=== PATIENT | female | born 1995 | race Caucasian/White ===

== ENCOUNTER 2020-05-20 03:48 | Inpatient (IN) ==
[2020-05-20] MEDS ORDERED: LACTATED RINGER'S 1,000 ML IV PRN (04:38)
[2020-05-20] MEDS ORDERED: OXYTOCIN 30 UNITS/500 ML BAG IV PRN ×2 (04:38→09:18)
[2020-05-20 05:01] LABS: Hematocrit (blood only) 39.2 % (37-47); Hemoglobin 13.3 g/dL (12.0-16.0); Mean Corpuscular Hemoglobin 28.8 pg (25-34); Mean Corpuscular Volume 84.8 fL (80-100); Platelet Count 234 K/uL (130-400); RDW Coefficient of Variation 13.4 % (11.5-14.5); RDW Standard Deviation 40.7 fL (36.4-46.3); Red Blood Count 4.62 M/uL (4.2-5.4); White Blood Count 10.62 K/uL (4.8-10.8)
[2020-05-20 05:02] LABS: Mean Corpuscular Hgb Conc 33.9 g/dL (32-36)
[2020-05-20] MEDS ORDERED: oxyCODONE/ACETAMINOPHEN 5mg/325mg TAB PO PRN (09:18)
[2020-05-20] MEDS ORDERED: ACETAMINOPHEN W/CODEINE #3 1 TAB PO PRN (09:18)
[2020-05-20] MEDS ORDERED: BENZOCAINE 20% AER SPR 82.5 GM CAN EXT PRN (09:18)
[2020-05-20] MEDS ORDERED: bisacodyL 10 MG SUPP PR PRN (09:18)
[2020-05-20] MEDS ORDERED: HYDROCORTISONE ACETATE 25 MG SUPP PR PRN (09:18)
[2020-05-20] MEDS ORDERED: SUPERCREAM 0.870% 15 GM JAR EXT PRN (09:18)
[2020-05-20] MEDS ORDERED: ACETAMINOPHEN 325 MG TAB PO PRN (09:18)
[2020-05-20] MEDS ORDERED: DIPHTHERIA/TETANUS/PERTUSSIS 0.5 ML SYR/VIAL IM ONE (09:18)
[2020-05-20] MEDS: IBUPROFEN 600 MG TAB PO PRN ×3 (09:36→20:05)
--- NOTE | 2020-05-20 18:18 | Delivery Summary ---
DATE OF OPERATION: 05/20/2020 DELIVERY NOTE The patient is a 2, para 2, blood type is O positive, group B strep negative. Due date is 05/21/2020, was admitted with hue rupture of membranes in labor. The patient requested no pain medicine and no labor stimulation. She stalled at about 9 cm. I was able to hold the cervix back and she with about 4 pushes, pushed the head beyond the cervix and then with about 3-4 more pushes, crown the . Infant delivered via direct occiput anterior position over an intact perineum. was suctioned through the mouth and the nose. Cord was allowed to pulsate for 1 minute, then it was clamped, cut by the father. Cord blood was taken. With IV Pitocin running, the placenta was removed intact. Inspection of the perineum revealed a first degree laceration at 6 o'clock. The vaginal mucosa was approximated with 3-0 Vicryl out and beyond the hymenal ring. A deep suture was used to approximate the bulbocavernosus muscle, separate deep suture was used to approximate the perineal body, a running subcuticular suture was used to approximate the perineal skin edges. Following this, vaginal examination revealed no hematoma formation. Sponges were removed from the vagina. Estimated blood loss was 100 mL. Apgars are deferred to the nurses. I attest to the content of the Intraoperative Record and any orders documented therein. Any exception s are noted below.
[2020-05-20] MEDS ORDERED: DOCUSATE SODIUM 100 MG CAP PO ONE (19:36)
[2020-05-20] MEDS: DOCUSATE SODIUM 100 MG CAP PO SCH (20:33)
[2020-05-21 06:22] LABS: Hematocrit (blood only) 36.6 % (37-47); Hemoglobin 12.1 g/dL (12.0-16.0); Mean Corpuscular Hemoglobin 28.3 pg (25-34); Mean Corpuscular Hgb Conc 33.1 g/dL (32-36); Mean Corpuscular Volume 85.7 fL (80-100); Mean Platelet Volume 10.1 fL (7.4-10.4); Platelet Count 212 K/uL (130-400); RDW Coefficient of Variation 13.7 % (11.5-14.5); RDW Standard Deviation 42.6 fL (36.4-46.3); Red Blood Count 4.27 M/uL (4.2-5.4); White Blood Count 12.36 K/uL (4.8-10.8)
[2020-05-21] MEDS ORDERED: PRENATAL VITAMIN 1 TAB PO SCH (08:00)
[2020-05-21] MEDS: DOCUSATE SODIUM 100 MG CAP PO SCH (08:02)
[2020-05-21] MEDS: IBUPROFEN 600 MG TAB PO PRN (08:02)
--- NOTE | 2020-05-21 10:16 | History & Physical Report ---
Date of Service May 21, 2020 Assessment & Plan Admission and Anticipated Discharge Date Admission Date: May 20, 2020 History of Present Illness Primary Care Provider: Ramona Frod PA-C Allergies Allergy/AdvReac Type Severity Reaction Status Date / Time No Known Drug Allergies AdvReac NKDA Verified 04/14/18 22:47 Home Medications Home Medications Medication Instructions Recorded Confirmed Type PNV cmb#95-ferrous fumarate-FA 1 tab PO DAILY 05/05/20 05/20/20 History [] cetirizine [Zyrtec] 10 mg PO DAILY 05/05/20 05/20/20 History Patient History Medical History Anxiety Patient feels this occurred after last baby only for about 2 months Surgical History [place] teeth removed Family History (Updated 05/05/20 @ 11:07 by Sally Vieyra RN) Grandfather (Paternal) Hypertension Father Hypertension Sister Hypertension Grandfather (Maternal) Cancer Grandmother (Paternal) Cancer Social History Smoking Status: Never smoker Hx Alcohol Use: No Hx Substance Use: No Preferred Language: Kiswahili Beliefs That Will Affect Care: None marital status: Current Living Situation: Family Other Information That Helps Us Care for You: No Feels Safe at Home: Yes Safety Concerns: Feels Safe At This Time Assistive Devices: Glasses Review of Systems All systems reviewed & are unremarkable except as noted in HPI & below Physical Exam Constitutional: WD/WN, vitals as above well developed and well nourished Eyes: PERRL, conjunctivae normal, anicteric sclerae Neck: trachea midline, no thyromegaly Respiratory: normal respiratory effort, lungs clear to auscultation Auscultation: no crackles, no rales and no wheezes Cardiovascular: RRR, no murmur, no edema Gastrointestinal (Abdomen): normal bowel sounds, soft, nontender, no hepatosplenomegaly Uterus is below umbilicus Musculoskeletal: no cyanosis or clubbing, extremities motor strength 5/5 Skin: no rashes, warm and dry Neurologic: patellar DTR's 2+ bilat, sensation intact Psychiatric: A+Ox3, euthymic affect Genitourinary: normal external appearance Results & Data ([facility]) Vital Signs (Past 12 Hours) Vital Signs Temp Pulse Resp BP 05/21/20 07:20 36.6 C 89 16 107/69 05/21/20 05:00 36.6 C 96 H 18 114/76 05/20/20 23:35 36.7 C 83 18 114/70
--- NOTE | 2020-05-21 10:18 | Obstetrical Progress Note ---
Date of Service May 21, 2020 Assessment & Plan (1) Normal course: PPD #1 pt doing well disch home with instructions Subjective Ambulation: ambulating normally Voiding: no voiding problems Passing Gas:: Yes Diet Tolerance:: regular diet Lochia:: Small Feeding Type:: breast feeding Review of Systems All systems reviewed & are unremarkable except as noted in HPI & below Physical Exam Constitutional WD/WN, vitals as above well developed and well nourished Eyes PERRL, conjunctivae normal, anicteric sclerae Neck trachea midline, no thyromegaly Respiratory normal respiratory effort, lungs clear to auscultation Auscultation: no crackles, no rales and no wheezes Cardiovascular RRR, no murmur, no edema Gastrointestinal (Abdomen) normal bowel sounds, soft, nontender, no hepatosplenomegaly Uterus is below umbilicus Musculoskeletal no cyanosis or clubbing, extremities motor strength 5/5 Skin no rashes, warm and dry Neurologic patellar DTR's 2+ bilat, sensation intact Psychiatric A+Ox3, euthymic affect Genitourinary normal external appearance Results & Data ([facility]) Vital Signs (Past 12 Hours) Vital Signs Temp Pulse Resp BP 05/21/20 07:20 36.6 C 89 16 107/69 05/21/20 05:00 36.6 C 96 H 18 114/76 05/20/20 23:35 36.7 C 83 18 114/70
[2020-05-21] MEDS ORDERED: bisacodyL 5 MG TABEC PO SCH (20:00)
== END 2020-05-21 13:41 | disposition home or self-care (01) | DRG 807 ==
LOC: OPB 03:48 → 4S1 03:52 → 4S2 13:30

== ENCOUNTER 2021-06-13 09:23 | Observation (INO) ==
[2021-06-13] MEDS ORDERED: SODIUM CHLORIDE 0.9% 500 ML IV STA (09:29)
[2021-06-13] MEDS ORDERED: ONDANSETRON INJ 2 MG/ML 2 ML VIAL IV STA (09:29)
[2021-06-13] MEDS ORDERED: FAMOTIDINE 20MG IV PUSH 20 MG/5 ML SYR IV STA (09:34)
[2021-06-13] MEDS ORDERED: KETOROLAC TROMETHAMINE 15 MG/ML VIAL IV STA (09:34)
--- NOTE | 2021-06-13 09:41 | Emergency Department Note ---
Impression & Plan Acute appendicitis, Nausea & vomiting ED Provider Note Provider: Samuel Castillo MD DATE OF SERVICE: 06/13/2021 CHIEF COMPLAINT: Abdominal pain, nausea HISTORY OF PRESENT ILLNESS: Patient is a 25-year-old female no significant past medical history presenting here today complaining of midepigastric abdominal pain to right lower quadrant starting last night with associated nausea. One episode of vomiting. Describes a 7 out of 10 pain currently describes it as bit of a sharp pain. Denies heartburn. 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 She is vaccinated for Covid. Little bit of chills but no fevers overnight. States she was well yesterday and is little bit of her son's candy and was up most the night however with pain and very nauseous feeling. Has not had much to eat or drink overnight given this and has not attempted fluid intake or food intake this morning. No history of similar. Denies any abdominal surgeries in the past. REVIEW OF SYSTEMS: A total of 10 review of systems was obtained and negative except as stated above in the HPI. 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 NECK: Trachea midline. LUNGS: Airway patent. No retractions. Breath sounds clear HEART: Regular rate and rhythm. No chest wall tenderness ABDOMEN: Soft minimal epigastric tenderness radiating to the right lower quadrant. No Payton sign or right upper quadrant tenderness. BACK: No bilateral flank tenderness. SKIN: Acyanotic, warm, dry, without rashes EXTREMITIES: Without swelling, tenderness or deformity NEUROLOGICAL: No focal deficits. No aphasia. No facial droop or slurred speech. Ambulatory. PDMP was checked without noted issue. Patient's laboratory studies and imaging reviewed. Differential includes Appendicitis, ovarian cyst, ovarian torsion, ectopic , TOA, PID, infections, diverticulitis, UTI, obstruction, mesenteric ischemia, aortic pathology, inflammatory bowel disease, renal colic, PUD, pancreatitis, biliary pathology, hernia, volvulus, constipation, as well as other pathologies. IMPRESSION/MEDICAL DECISION MAKING: Patient symptoms could be related to gastritis or gastroenteritis however with the pain radiating quadrant question possible appendicitis. Patient labs and CT scan to be completed. Reassuring exam and lower suspicion for biliary p athology. Patient pain also seems less likely to represent ovarian pathology of oncological issues. Patient denies urinary symptoms but urinalysis was ordered. Treated her symptomatically initially. Blood work returns with moderate leukocytosis of almost 17. No evidence of hepatitis or pancreatitis. Urine reassuring. Negative . CT scan consistent with acute appendicitis nonruptured with 1.2 cm dilated appendix. Surgery was consulted. Cefoxitin was ordered per their direction. Patient was updated having significant improvement of her pain and nausea symptoms. Surgery to evaluate for likely laparoscopic appendectomy this afternoon. DIAGNOSIS: Acute appendicitis, nausea and vomiting DISPOSITION: Surgery team to take patient to the OR. Past Med/Surg History Medical History (Updated 06/13/21 @ 13:56 by Samuel Castillo M.D.) Anxiety Patient feels this occurred after last baby only for about 2 months Surgical History [place] teeth removed Family History (Updated 05/05/20 @ 11:07 by Sally Vieyra RN) Grandfather (Paternal) Hypertension Father Hypertension Sister Hypertension Grandfather (Maternal) Cancer Grandmother (Paternal) Cancer Social History Smoking Status: Never smoker Hx Alcohol Use: No Hx Substance Use: No Preferred Language: Citizen Of [place] Beliefs That Will Affect Care: None marital status: Current Living Situation: Family Feels Safe at Home: Yes Assistive Devices: Glasses Allergies Allergies Allergy/AdvReac Type Severity Reaction Status Date / Time No Known Drug Allergies AdvReac NKDA Verified 04/14/18 22:47 Home Meds Home Medications Medication Instructions Recorded Confirmed cetirizine 10 mg tablet (Zyrtec) 10 mg PO DAILY 05/05/20 06/13/21 vit no.95-ferrous 1 tab PO DAILY 05/05/20 06/13/21 fumarate 28 mg-folic acid 800 mcg tablet () Previous Rx's Medication Instructions Recorded ibuprofen 600 mg tablet 600 mg PO Q4H #30 tab 05/21/20 Results & Data (ED) Vital Signs Vital Signs - 24 hr 06/13/21 09:25 06/13/21 12:21 Temperature 36.8 C Temperature Source Temporal Artery Scan Pulse Rate 95 H Pulse Rate [Radial] 88 Pulse Rhythm [Radial] Regular Pulse Strength [Radial] Normal Respiratory Rate 18 18 Respiratory Effort / Characteristics Non-Labored Respiratory Depth Normal Normal Blood Pressure 101/71 Blood Pressure [Left Arm] 120/59 L Blood Pressure Mean 81 Blood Pressure Mean [Left Arm] 79 Blood Pressure Position [Left Arm] Lying Pulse Oximetry 100 97 Oxygen Delivery Method Room Air Room Air Sepsis Recent Fever Within 48 Hours No Sepsis New/Unexplained Change in Mental Status No Sepsis Action Taken by Nursing No Action Required Laboratory Data Result diagrams: 06/13/21 10:26 06/13/21 10: Lab Results 06/13/21 06/13/21 06/13/21 Range/Units 10:10 10: 10: WBC 16.93 H (4.8-10.8) K/uL RBC 4.69 (4.2-5.4) M/uL Hgb 13.9 (12.0-16.0) g/dL Hct 40.6 (37-47) % MCV 86.6 (80-100) fL MCH 29.6 (25-34) pg MCHC 34.2 (32-36) g/dL RDW Std Deviation 39.8 (36.4-46.3) fL RDW Coeff of Jaclyn 12.5 (11.5-14.5) % Plt Count 338 (130-400) K/uL MPV 10.2 (7.4-10.4) fL Immature Gran % (Auto) 0.1 % Neut % (Auto) 94.3 % Lymph % (Auto) 4.0 % Cloud % (Auto) 1.5 % Eos % (Auto) 0.0 % Baso % (Auto) 0.1 % Neut # (Auto) 15.97 H (1.4-6.5) K/uL Lymph # (Auto) 0.68 L (1.2-3.4) K/uL Cloud # (Auto) 0.25 (0.11-0.59) K/uL Eos # (Auto) 0.00 (0-0.5) K/uL Baso # (Auto) 0.01 (0-0.2) K/uL Immature Gran # (Auto) 0.02 (0.00-0.02) K/uL Sodium (136-145) mmol/L Potassium (3.5-5.1) mmol/L Chloride (98-107) mmol/L Carbon Dioxide (21-32) mmol/L Anion Gap (3-11) BUN (7-18) mg/dl Creatinine (0.6-1.2) mg/dl Est Cr Clr Drug Dosing ml/min Est GFR ( Amer) ml/min Est GFR (Non-Af Amer) ml/min BUN/Creatinine Ratio (10-20) Glucose (70-99) mg/dl Calcium (8.5-10.1) mg/dl Total Bilirubin (0.2-1) mg/dl AST (15-37) U/L ALT (12-78) U/L Alkaline Phosphatase (45-117) U/L Total Protein (6.4-8.2) gm/dl Albumin (3.4-5.0) gm/dl Globulin (2.5-4.0) gm/dl Albumin/Globulin Ratio (0.9-2) Lipase (73-393) U/L HCG, Qual (Negative) Urine Color Urine Appearance (Clear) Urine pH (4.5-7.5) Ur Specific [place] (1.000-1.030) Urine Protein (Negative) Urine Glucose (UA) (Negative) Urine Ketones (Negative) Urine Blood (Negative) Urine Nitrite (Negative) Urine Bilirubin (Negative) Urine Urobilinogen (Negative) Ur Leukocyte Esterase (Negative) Urine WBC (Auto) (0-5) /hpf Urine RBC (Auto) (0-4) /hpf U Hyaline Cast (Auto) (0-5) /lpf U Epithel Cells (Auto) (0-5) /lpf Urine Bacteria (Auto) (Negative) Ur Renal Epithelial Cell COVID-19 Eval Order Covid19 at [facility] SARS-CoV-2 (PCR) NEGATIVE (Negative) 06/13/21 06/13/21 06/13/21 Range/Units 10:26 10:26 10:42 WBC (4.8-10.8) K/uL RBC (4.2-5.4) M/uL Hgb (12.0-16.0) g/dL Hct (37-47) % MCV (80-100) fL MCH (25-34) pg MCHC (32-36) g/dL RDW Std Deviation (36.4-46.3) fL RDW Coeff of Jaclyn (11.5-14.5) % Plt Count (130-400) K/uL MPV (7.4-10.4) fL Immature Gran % (Auto) % Neut % (Auto) % Lymph % (Auto) % Cloud % (Auto) % Eos % (Auto) % Baso % (Auto) % Neut # (Auto) (1.4-6.5) K/uL Lymph # (Auto) (1.2-3.4) K/uL Cloud # (Auto) (0.11-0.59) K/uL Eos # (Auto) (0-0.5) K/uL Baso # (Auto) (0-0.2) K/uL Immature Gran # (Auto) (0.00-0.02) K/uL Sodium 137 (136-145) mmol/L Potassium 3.7 (3.5-5.1) mmol/L Chloride 104 (98-107) mmol/L Carbon Dioxide 27 (21-32) mmol/L Anion Gap 6.0 (3-11) BUN 12 (7-18) mg/dl Creatinine 0.61 (0.6-1.2) mg/dl Est Cr Clr Drug Dosing 119.6 ml/min Est GFR ( Amer) 144.0 ml/min Est GFR (Non-Af Amer) 124.2 ml/min BUN/Creatinine Ratio 19.6 (10-20) Glucose 112 H (70-99) mg/dl Calcium 9.3 (8.5-10.1) mg/dl Total Bilirubin 1.6 H (0.2-1) mg/dl AST 11 L (15-37) U/L ALT 22 (12-78) U/L Alkaline Phosphatase 70 (45-117) U/L Total Protein 8.0 (6.4-8.2) gm/dl Albumin 4.0 (3.4-5.0) gm/dl Globulin 4.0 (2.5-4.0) gm/dl Albumin/Globulin Ratio 1.0 (0.9-2) Lipase 95 (73-393) U/L HCG, Qual Negative (Negative) Urine Color Yellow Urine Appearance Turbid A (Clear) Urine pH 8.5 H (4.5-7.5) Ur Specific [place] 1.022 (1.000-1.030) Urine Protein Negative (Negative) Urine Glucose (UA) Negative (Negative) Urine Ketones 1+ H (Negative) Urine Blood Negative (Negative) Urine Nitrite Negative (Negative) Urine Bilirubin Negative (Negative) Urine Urobilinogen Negative (Negative) Ur Leukocyte Esterase Negative (Negative) Urine WBC (Auto) 1-5 (0-5) /hpf Urine RBC (Auto) 10-30 H (0-4) /hpf U Hyaline Cast (Auto) 10-30 H (0-5) /lpf U Epithel Cells (Auto) >30 H (0-5) /lpf Urine Bacteria (Auto) Negative (Negative) Ur Renal Epithelial Cell Not Reportable COVID-19 Eval Order SARS-CoV-2 (PCR) (Negative) Administered Medications Discontinued Medications Sodium Chloride (Nss) 500 mls @ 999 mls/hr IV .Q31M STA Stop: 06/13/21 09:59 Last Infusion: 06/13/21 10:41 Dose: 0 mls/hr Documented by: [id number] Admin: 06/13/21 10:09 Dose: 999 mls/hr Documented by: [id number] Famotidine (Pepcid 20mg Iv Push) 20 mg in 5 mls @ 2.5 mls/min IV NOW STA Stop: 06/13/21 09:35 Last Admin: 06/13/21 10:08 Dose: 2.5 mls/min Documented by: [id number] Cefoxitin Sodium (Mefoxin) 2,000 mg in 60 mls @ 100 mls/hr IV NOW STA Stop: 06/13/21 13:01 Last Infusion: 06/13/21 13:18 Dose: 0 mls/hr Documented by: [id number] Admin: 06/13/21 12:41 Dose: 100 mls/hr Documented by: [id number] Ioversol (Optiray 320 100ml) 94 ml IV ONCE ONE Stop: 06/13/21 11:54 Last Admin: 06/13/21 11:54 Dose: 94 ml Documented by: [id number] Ketorolac Tromethamine (Ketorolac Tromethamine 15 Mg/Ml Vial) 10 mg IV NOW STA Stop: 06/13/21 09:35 Last Admin: 06/13/21 10:08 Dose: 10 mg Documented by: [id number] Ondansetron HCl (Ondansetron Inj 2 Mg/Ml 2 Ml Vial) 4 mg IV NOW STA Stop: 06/13/21 09:30 Last Admin: 06/13/21 10:08 Dose: 4 mg Documented by: [id number] Imaging Data Radiologist's Impression: Abdomen/Pelvis CT 06/13/21 09:34 CT OF THE ABDOMEN AND PELVIS WITH CONTRAST CLINICAL HISTORY: nausea, mid to RLQ pain COMPARISON STUDY: None. TECHNIQUE: Following IV administration of 94 mL of Optiray, axial images of the abdomen and pelvis were obtained from the lung bases to the proximal femurs. Images were reviewed in the axial, sagittal, and coronal planes. IV contrast was administered without complication. Automated exposure control was utilized for the study. A dose lowering technique was utilized adhering to the principles of ALARA. Oral contrast was administered. CT DOSE: 372.66 mGycm FINDINGS: Lung bases are unremarkable. No pneumatosis, free air or portal venous gas is present. Size of the spleen is at the upper limits of normal. The adrenal glands, kidneys and pancreas are normal. There is no biliary or pancreatic ductal dilatation. Note is made of three intermediate attenuation hepatic lesions which have similar imaging characteristics. The largest is a 3.3 cm lateral segment lesion. This has incomplete nodular enhancement. There is no evidence for a bowel obstruction. Appendicoliths within the appendix are noted. The appendix is mildly dilated and fluid-filled, measuring 1.2 cm in caliber. There is mild periappendiceal infiltration. No free air or abscess is present. Uterine horns are slightly divergent. This favors an arcuate uterus. IMPRESSION: 1. Findings consistent with acute appendicitis. No free air or abscess. 2. Three hepatic lesions, as described above. These favor hemangiomas. However, follow-up nonemergent liver ultrasound is recommended. 3. Possible uterine anomaly. An arcuate uterus is favored. Septate uterus could appear similar although is considered less likely. ACT 112: Negative or not required by law. Electronically signed by: Olegario Galan M.D. 06/13/2021 12:05 PM Discharge Plan Visit Data Chief Complaint: Abdominal Pain Stated Complaint: ABD PAIN ED Provider: Samuel Castillo Discharge Problem: Acute appendicitis, Nausea & vomiting Patient Disposition: Being Evaluated by Surgeon Forms Stand Alone Forms: [employer] [facility] [employer] Prescriptions Prescriptions: No Action cetirizine [Zyrtec] 10 mg Tablet 10 mg PO DAILY RF: 0 PNV cmb#95-ferrous fumarate-FA [] 28 mg iron- 800 mcg Tablet 1 tab PO DAILY RF: 0 ibuprofen 600 mg Tablet 600 mg PO Q4H Qty: 30 RF: 0 Referrals Referrals: Ramona Ford PA-C [Outside Practitioners] -
[2021-06-13 10:31] LABS: Basophils # (auto) 0.01 K/uL (0-0.2); Basophils % (auto) 0.1 %; Hematocrit (blood only) 40.6 % (37-47); Hemoglobin 13.9 g/dL (12.0-16.0); Immature Granulocytes # (auto) 0.02 K/uL (0.00-0.02); Immature Granulocytes % (auto) 0.1 %; Lymphocytes # (auto) 0.68 K/uL (1.2-3.4); Mean Corpuscular Hemoglobin 29.6 pg (25-34); Mean Corpuscular Hgb Conc 34.2 g/dL (32-36); Mean Corpuscular Volume 86.6 fL (80-100); Mean Platelet Volume 10.2 fL (7.4-10.4); Monocytes # (auto) 0.25 K/uL (0.11-0.59); Monocytes % (auto) 1.5 %; Neutrophils # (auto) 15.97 K/uL (1.4-6.5); Neutrophils % (auto) 94.3 %; Platelet Count 338 K/uL (130-400); RDW Coefficient of Variation 12.5 % (11.5-14.5); RDW Standard Deviation 39.8 fL (36.4-46.3); Red Blood Count 4.69 M/uL (4.2-5.4); White Blood Count 16.93 K/uL (4.8-10.8)
[2021-06-13 10:48] LABS: BUN Creatinine Ratio 19.6 (10-20); Calcium 9.3 mg/dl (8.5-10.1); Creatinine Clr Calc Pharmacy 119.6 ml/min; Est GFR (Non-African American) 124.2 ml/min; Potassium 3.7 mmol/L (3.5-5.1)
[2021-06-13 10:51] LABS: Bilirubin,Total 1.6 mg/dl (0.2-1)
[2021-06-13 10:58] LABS: Pregnancy Test, Serum Negative (Negative)
[2021-06-13 11:02] LABS: Appearance Urine Turbid (Clear); Bacteria Urine Automated Negative (Negative); Bilirubin Urine Negative (Negative); Blood Urine Negative (Negative); Color Urine Yellow; Epithelial Cell Urine Auto >30 /lpf (0-5); Glucose Urine UA Negative (Negative); Ketones Urine 1+ (Negative); Leukocyte Esterase Urine Negative (Negative); Nitrite Urine Negative (Negative); Protein Urine Negative (Negative); Specific Gravity Urine 1.022 (1.000-1.030); Urobilinogen Urine Negative (Negative); pH Urine 8.5 (4.5-7.5)
[2021-06-13] MEDS ORDERED: OPTIRAY 320 100ml IV ONE (11:53)
--- NOTE | 2021-06-13 12:07 | CT Scan Report ---
CT OF THE ABDOMEN AND PELVIS WITH CONTRAST CLINICAL HISTORY: nausea, mid to RLQ pain COMPARISON STUDY: None. TECHNIQUE: Following IV administration of 94 mL of Optiray, axial images of the abdomen and pelvis we re obtained from the lung bases to the proximal femurs. Images were reviewed in the axial, sagittal, and coronal planes. IV contrast was administered without complication. Automated exposure control wa s utilized for the study. A dose lowering technique was utilized adhering to the principles of ALARA . Oral contrast was administered. CT DOSE: 372.66 mGycm FINDINGS: Lung bases are unremarkable. No pneumatosis, free air or portal venous gas is present. Size of the spleen is at the upper limits of normal. The adrenal glands, kidneys and pancreas are normal. There is no biliary or pancreatic ductal dilatation. Note is made of three intermediate attenuation hepatic lesions which have similar imaging characteristics. The largest is a 3.3 cm lateral segment l esion. This has incomplete nodular enhancement. There is no evidence for a bowel obstruction. Appendi coliths within the appendix are noted. The appendix is mildly dilated and fluid-filled, measuring 1.2 cm in caliber. There is mild periappendiceal infiltration. No free air or abscess is present. Uterin e horns are slightly divergent. This favors an arcuate uterus. IMPRESSION: 1. Findings consistent with acute appendicitis. No free air or abscess. 2. Three hepatic lesions, as described above. These favor hemangiomas. However, follow-up nonemergent liver ultrasound is recommended. 3. Possible uterine anomaly. An arcuate uterus is favored. Septate uterus could appear similar althou gh is considered less likely. ACT 112: Negative or not required by law. Electronically signed by: Olegario Galan M.D. 06/13/2021 12:05 PM
[2021-06-13] MEDS ORDERED: cefOXitin 2,000 MG/60 ML BAG IV STA (12:26)
[2021-06-13] MEDS ORDERED: MIDAZOLAM HCL 1 MG/ML 2ML VIAL ONE (15:16)
[2021-06-13] MEDS ORDERED: DEXAMETHASONE SOD INJ 4 MG/ML VIAL ONE (15:16)
[2021-06-13] MEDS ORDERED: ROCURONIUM BROMIDE 10 MG/ML 5 ML VIAL IV ONE (15:16)
[2021-06-13] MEDS ORDERED: PROPOFOL IV EMULSION 10 MG/ML 20 ML VIAL IV ONE (15:16)
[2021-06-13] MEDS ORDERED: LIDOCAINE 2% 2 ML VIAL/AMP(20MG/ML) INFIL ONE (15:16)
[2021-06-13] MEDS ORDERED: fentaNYL citrate 100 MCG/2 ML VIAL ONE ×2 (15:16→15:59)
[2021-06-13] MEDS ORDERED: ONDANSETRON INJ 2 MG/ML 2 ML VIAL ONE (15:16)
--- NOTE | 2021-06-13 15:20 | Anesthesiology Consultation ---
Date of Service June 13, 2021 Assessment & Plan Chart Review Chart Review: Acceptable Risk for Surgery and Patient NOT seen in Pre Admission Testing Consults Requested none ASA [id number] Proposed Anesthesia Anesthesia Type: General Risk / Benefits Reviewed With: PT / POA / Parent / Guardian, Accepts Plan and Informed Consent Obtained History Surgery Operation Date: 06/13/21 12:00 Proposed Procedures p Laparoscopic Appendectomy - Ximena Aguirre MD Height/Weight Height: 5 ft 4 in Weight: 62 kg Allergies Allergy/AdvReac Type Severity Reaction Status Date / Time No Known Drug Allergies AdvReac NKDA Verified 04/14/18 22:47 Medications Home Medications Medication Instructions Recorded Confirmed Last Taken cetirizine 10 mg tablet (Zyrtec) 10 mg PO DAILY 05/05/20 06/13/21 05/18/20 09:00 vit no.95-ferrous 1 tab PO DAILY 05/05/20 06/13/21 05/20/20 00:00 fumarate 28 mg-folic acid 800 mcg tablet () ibuprofen 600 mg tablet 600 mg PO Q4H #30 tab 05/21/20 06/13/21 Unknown NPO Date Last Intake of Fluids: 06/13/21 Time Last Intake of Fluids: 11:30 Date Last Intake of Solids: 06/12/21 Time Last Intake of Solids: 21:30 Past Medical History Medical History (Updated 06/13/21 @ 13:56 by Samuel Castillo M.D.) Anxiety Patient feels this occurred after last baby only for about 2 months Exercise / Class Metabolic Activity II 4-5 Yardwork/Stairs/Walk up hill Past Family History Family History (Updated 05/05/20 @ 11:07 by Sally Vieyra RN) Grandfather (Paternal) Hypertension Father Hypertension Sister Hypertension Grandfather (Maternal) Cancer Grandmother (Paternal) Cancer Past Surgical History Surgical History [place] teeth removed Past Anesthesia History No Hx of Anesthesia Complications and No Family Hx of Anesthesia Complications History of PONV No Hx of PONV and No Hx of Motion Sickness Social History Smoking Status: Never smoker Hx Alcohol Use: No Hx Substance Use: No Physical Exam Vital Signs Last Vital Signs Temp 37.0 C 06/13/21 14:38 Pulse 92 H 06/13/21 14:38 Resp 18 11/04/21 14:38 BP 125/78 06/13/21 14:38 Pulse Ox 100 06/13/21 14:38 ENMT Mouth: no dentition abnormality Thyromental Distance: > or= 3.5 Finger Breadths Mallampati Class: II Neck normal visual inspection Respiratory normal respiratory effort Auscultation: lungs clear to auscultation bilaterally Cardiovascular Rate/Rhythm: regular rate and regular rhythm Psychiatric Orientation: alert Testing Laboratory Results 06/13/21 10:26 06/13/21 10:26 Urine Color Yellow 06/13/21 10:42 Urine Appearance Turbid (Clear) A 06/13/21 10:42 Urine pH 8.5 (4.5-7.5) H 06/13/21 10:42 Ur Specific [place] 1.022 (1.000-1.030) 06/13/21 10:42 Urine Protein Negative (Negative) 06/13/21 10:42 Urine Glucose (UA) Negative (Negative) 06/13/21 10:42 Urine Ketones 1+ (Negative) H 06/13/21 10:42 Urine Nitrite Negative (Negative) 06/13/21 10:42 Ur Leukocyte Esterase Negative (Negative) 06/13/21 10:42 Urine WBC (Auto) 1-5 /hpf (0-5) 06/13/21 10:42 Urine RBC (Auto) 10-30 /hpf (0-4) H 06/13/21 10:42 U Hyaline Cast (Auto) 10-30 /lpf (0-5) H 06/13/21 10:42 U Epithel Cells (Auto) >30 /lpf (0-5) H 06/13/21 10:42 Urine Bacteria (Auto) Negative (Negative) 06/13/21 10:42
--- NOTE | 2021-06-13 15:25 | Surgery Consultation ---
Date of Consultation June 13, 2021 Assessment & Plan (1) Acute appendicitis: pt is a 25 year-old female who presents to Er with one day history RLQ pain, IMP: acute appendicitis, Plan, I recommend to do laparoscopic appendectomy, possible open, D/W benefits, risks and alternatives of the surgery, the risks - infection, bleeding, injury other organs, abscess, pt understood she agrees with the surgery, she signed informed consent, I answered all questions, pre-op iv antibiotic, History of Present Illness Reason for Consultation: Acute appendicitis Attending Physician: Ximena Aguirre MD History of Present Illness CHIEF COMPLAINT: Abdominal pain, nausea HISTORY OF PRESENT ILLNESS: Patient is a 25-year-old female no significant past medical history presenting here today complaining of midepigastric abdominal pain to right lower quadrant starting last night with associated nausea. One episode of vomiting. Describes a 7 out of 10 pain currently describes it as bit of a sharp pain. Denies heartburn. 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 She is vaccinated for Covid. Little bit of chills but no fevers overnight. States she was well yesterday and is little bit of her son's candy and was up most the night however with pain and very nauseous feeling. Has not had much to eat or drink overnight given this and has not attempted fluid intake or food intake this morning. No history of similar. Denies any abdominal surgeries in the past. I ( Ximena Aguirre MD) got a call for consult acute appendicitis, I reviewed pt's H/P, labs, CT scan with pt, REVIEW OF SYSTEMS: A total of 10 review of systems was obtained and negative except as stated above in the HPI. 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 2 children Past Med/Surg History Medical History(Updated 06/13/21 @ 13:56 by Samuel Castillo M.D.) Anxiety Patient feels this occurred after last baby only for about 2 months Surgical History [place] teeth removed Family History(Updated 05/05/20 @ 11:07 by Sally Vieyra RN) Grandfather (Paternal) HypertensionFather HypertensionSister HypertensionGrandfather (Maternal) CancerGrandmother (Paternal) Cancer Social History Smoking Status: Never smoker Hx Alcohol Use: No Hx Substance Use: No Preferred Language: Welsh Beliefs That Will Affect Care: None marital status: Current Living Situation: Family Feels Safe at Home: Yes Assistive Devices: Glasses Allergies Allergies Allergy/AdvReac Type Severity Reaction Status Date / Time No Known Drug Allergies AdvReac NKDA Verified 04/14/18 22:47 Home Meds Home Medications Medication Instructions Recorded Confirmed cetirizine 10 mg tablet (Zyrtec) 10 mg PO DAILY 05/05/20 1 vit no.95-ferrous 1 tab PO DAILY 05/05/20 06/13/21 fumarate 28 mg-folic acid 800 mcg tablet () Previous Rx's Medication Instructions Recorded ibuprofen 600 mg tablet 600 mg PO Q4H #30 tab 05/21/20 Results & Data (ED) Vital Signs Vital Signs - 24 hr 06/13/21 09:25 06/13/21 12:21 Temperature 36.8 C Temperature Source Temporal Artery Scan Pulse Rate 95 H Pulse Rate [Radial] 88 Pulse Rhythm [Radial] Regular Pulse Strength [Radial] Normal Respiratory Rate 18 18 Respiratory Effort / Characteristics Non-Labored Respiratory Depth Normal Normal Blood Pressure 101/71 Blood Pressure [Left Arm] 120/59 L Blood Pressure Mean 81 Blood Pressure Mean [Left Arm] 79 Blood Pressure Position [Left Arm] Lying Pulse Oximetry 100 97 Oxygen Delivery Method Room Air Room Air Sepsis Recent Fever Within 48 Hours No Sepsis New/Unexplained Change in Mental Status No Sepsis Action Taken by Nursing No Action Required Laboratory Data Result diagrams: 06/13/21 10:26 06/13/21 10:26 Lab Results 06/13/21 06/13/21 06/13/21 Range/Units 10:10 10:10 10:26 WBC 16.93 H (4.8-10.8) K/uL RBC 4.69 (4.2-5.4) M/uL Hgb B 13.9 (12.0-16.0) g/dL Hct 40.6 (37-47) % MCV 86.6 (80-100) fL MCH 29.6 (25-34) pg MCHC 34.2 (32-36) g/dL RDW Std Deviation 39.8 (36.4-46.3) fL RDW Coeff of Jaclyn 12.5 (11.5-14.5) % Plt Count 338 (130-400) K/uL MPV 10.2 (7.4-10.4) fL Immature Gran % (Auto) 0.1 % Neut % (Auto) 94.3 % Lymph % (Auto) 4.0 % [place] % (Auto) 1.5 % Eos % (Auto) 0.0 % Baso % (Auto) 0.1 % Neut # (Auto) 15.97 H (1.4-6.5) K/uL Lymph # (Auto) 0.68 L (1.2-3.4) K/uL [place] # (Auto) 0.25 (0.11-0.59) K/uL Eos # (Auto) 0.00 (0-0.5) K/uL Baso # (Auto) 0.01 (0-0.2) K/uL Immature Gran # (Auto) 0.02 (0.00-0.02) K/uL Sodium (136-145) mmol/L Potassium (3.5-5.1) mmol/L Chloride (98-107) mmol/L Carbon Dioxide (21-32) mmol/L Anion Gap (3-11) BUN (7-18) mg/dl Creatinine (0.6-1.2) mg/dl Est Cr Clr Drug Dosing ml/min Est GFR ( Amer) ml/min Est GFR (Non-Af Amer) ml/min BUN/Creatinine Ratio (10-20) Glucose (70-99) mg/dl Calcium (8.5-10.1) mg/dl Total Bilirubin (0.2-1) mg/dl AST (15-37) U/L ALT (12-78) U/L Alkaline Phosphatase (45-117) U/L Total Protein (6.4-8.2) gm/dl Albumin (3.4-5.0) gm/dl Globulin B (2.5-4.0) gm/dl Albumin/Globulin Ratio (0.9-2) Lipase (73-393) U/L HCG, Qual (Negative) Urine Color Urine Appearance (Clear) Urine pH (4.5-7.5) Ur Specific [place] (1.000-1.030) Urine Protein (Negative) Urine Glucose (UA) (Negative) Urine Ketones (Negative) Urine Blood (Negative) Urine Nitrite (Negative) Urine Bilirubin (Negative) Urine Urobilinogen (Negative) Ur Leukocyte Esterase (Negative) Urine WBC (Auto) (0-5) /hpf Urine RBC (Auto) (0-4) /hpf U Hyaline Cast (Auto) (0-5) /lpf U Epithel Cells (Auto) (0-5) /lpf Urine Bacteria (Auto) (Negative) Ur Renal Epithelial Cell COVID-19 Eval Order Covid19 at [facility] SARS-CoV-2 (PCR) NEGATIVE (Negative) 06/13/21 06/13/21 06/13/21 Range/Units 10:26 10:26 10:42 WBC (4.8-10.8) K/uL RBC (4.2-5.4) M/uL Hgb (12.0-16.0) g/dL Hct (37-47) % MCV (80-100) fL MCH (25-34) pg MCHC (32-36) g/dL RDW Std Deviation (36.4-46.3) fL RDW Coeff of Jaclyn C (11.5-14.5) % Plt Count (130-400) K/uL MPV (7.4-10.4) fL Immature Gran % (Auto) % Neut % (Auto) % Lymph % (Auto) % [place] % (Auto) % Eos % (Auto) % Baso % (Auto) % Neut # (Auto) (1.4-6.5) K/uL Lymph # (Auto) (1.2-3.4) K/uL [place] # (Auto) (0.11-0.59) K/uL Eos # (Auto) (0-0.5) K/uL Baso # (Auto) (0-0.2) K/uL Immature Gran # (Auto) (0.00-0.02) K/uL Sodium 137 (136-145) mmol/L Potassium 3.7 (3.5-5.1) mmol/L Chloride 104 (98-107) mmol/L Carbon Dioxide 27 (21-32) mmol/L Anion Gap 6.0 (3-11) BUN 12 (7-18) mg/dl Creatinine 0.61 (0.6-1.2) mg/dl Est Cr Clr Drug Dosing 119.6 ml/min Est GFR ( Amer) 144.0 C ml/min Est GFR (Non-Af Amer) 124.2 ml/min BUN/Creatinine Ratio 19.6 (10-20) Glucose 112 H (70-99) mg/dl Calcium 9.3 (8.5-10.1) mg/dl Total Bilirubin 1.6 H (0.2-1) mg/dl D AST 11 L (15-37) U/L ALT 22 (12-78) U/L Alkaline Phosphatase 70 (45-117) U/L Total Protein 8.0 (6.4-8.2) gm/dl Albumin 4.0 (3.4-5.0) gm/dl Globulin 4.0 (2.5-4.0) gm/dl Albumin/Globulin Ratio 1.0 (0.9-2) Lipase 95 (73-393) U/L HCG, Qual Negative (Negative) Urine Color Yellow Urine Appearance Turbid A (Clear) Urine pH 8.5 H (4.5-7.5) Ur Specific [place] 1.022 (1.000-1.030) Urine Protein Negative (Negative) Urine Glucose (UA) Negative (Negative) Urine Ketones 1+ H (Negative) Urine Blood Negative (Negative) Urine Nitrite Negative (Negative) Urine Bilirubin Negative (Negative) Urine Urobilinogen Negative (Negative) Ur Leukocyte Esterase Negative (Negative) Urine WBC (Auto) 1-5 (0-5) /hpf Urine RBC (Auto) 10-30 H (0-4) /hpf U Hyaline Cast (Auto) 10-30 H (0-5) /lpf U Epithel Cells (Auto) >30 H (0-5) /lpf Urine Bacteria (Auto) Negative (Negative) Ur Renal Epithelial Cell Not Reportable COVID-19 Eval Order SARS-CoV-2 (PCR) (Negative) Administered Medications Discontinued Medications Sodium Chloride (Nss) 500 mls @ 999 mls/hr IV .Q31M STA Stop: 06/13/21 09:59 Last Infusion: 06/13/21 10:41 Dose: 0 mls/hr Documented by: [id number] Admin: 06/13/21 10:09 Dose: 999 mls/hr Documented by: [id number] Famotidine (Pepcid 20mg Iv Push) 20 mg in 5 mls @ 2.5 mls/min IV NOW STA Stop: 06/13/21 09:35 Last Admin: 06/13/21 10:08 Dose: 2.5 mls/min Documented by: [id number] Cefoxitin Sodium (Mefoxin) 2,000 mg in 60 mls @ 100 mls/hr IV NOW STA Stop: 06/13/21 13:01 Last Infusion: 06/13/21 13:18 Dose: 0 mls/hr Documented by: [id number] Admin: 06/13/21 12:41 Dose: 100 mls/hr Documented by: [id number] Ioversol (Optiray 320 100ml) 94 ml IV ONCE ONE Stop: 06/13/21 11:54 Last Admin: 06/13/21 11:54 Dose: 94 ml Documented by: [id number] Ketorolac Tromethamine (Ketorolac Tromethamine 15 Mg/Ml Vial) 10 mg IV NOW STA Stop: 06/13/21 09:35 Last Admin: 06/13/21 10:08 Dose: 10 mg Documented by: [id number] Ondansetron HCl (Ondansetron Inj 2 Mg/Ml 2 Ml Vial) 4 mg IV NOW STA Stop: 06/13/21 09:30 Last Admin: 06/13/21 10:08 Dose: 4 mg Documented by: [id number] Imaging Data Radiologist's Impression: Abdomen/Pelvis CT 06/13/21 09:34 CT OF THE ABDOMEN AND PELVIS WITH CONTRAST CLINICAL HISTORY: nausea, mid to RLQ pain COMPARISON STUDY: None. TECHNIQUE: Following IV administration of 94 mL of Optiray, axial images of the abdomen and pelvis were obtained from the lung bases to the proximal femurs. Images were reviewed in the axial, sagittal, and coronal planes. IV contrast was administered without complication. Automated exposure control was utilized for the study. A dose lowering technique was utilized adhering to the principles of ALARA. Oral contrast was administered. CT DOSE: 372.66 mGycm FINDINGS: Lung bases are unremarkable. No pneumatosis, free air or portal venous gas is present. Size of the spleen is at the upper limits of normal. The adrenal glands, kidneys and pancreas are normal. There is no biliary or pancreatic ductal dilatation. Note is made of three intermediate attenuation hepatic lesions which have similar imaging characteristics. The largest is a 3.3 cm lateral segment lesion. This has incomplete nodular enhancement. There is no evidence for a bowel obstruction. Appendicoliths within the appendix are noted. The appendix is mildly dilated and fluid-filled, measuring 1.2 cm in caliber. There is mild periappendiceal infiltration. No free air or abscess is present. Uterine horns are slightly divergent. This favors an arcuate uterus. IMPRESSION: 1. Findings consistent with acute appendicitis. No free air or abscess. 2. Three hepatic lesions, as described above. These favor hemangiomas. However, follow-up nonemergent liver ultrasound is recommended. 3. Possible uterine anomaly. An arcuate uterus is favored. Septate uterus could appear similar although is considered less likely. Allergies Allergy/AdvReac Type Severity Reaction Status Date / Time No Known Drug Allergies AdvReac NKDA Verified 04/14/18 22:47 Home Medications Medication Instructions Recorded Confirmed Type cetirizine 10 mg tablet (Zyrtec) 10 mg PO DAILY 05/05/20 06/13/21 History vit no.95-ferrous 1 tab PO DAILY 05/05/20 06/13/21 History fumarate 28 mg-folic acid 800 mcg tablet () ibuprofen 600 mg tablet 600 mg PO Q4H #30 tab 05/21/20 06/13/21 Rx Patient History Medical History (Updated 06/13/21 @ 13:56 by Samuel Castillo M.D.) Anxiety Patient feels this occurred after last baby only for about 2 months Surgical History [place] teeth removed Family History (Updated 05/05/20 @ 11:07 by Sally Vieyra RN) Grandfather (Paternal) Hypertension Father Hypertension Sister Hypertension Grandfather (Maternal) Cancer Grandmother (Paternal) Cancer Social History Smoking Status: Never smoker Hx Alcohol Use: No Hx Substance Use: No Preferred Language: Welsh Beliefs That Will Affect Care: None marital status: Current Living Situation: Family Feels Safe at Home: Yes Assistive Devices: Glasses Physical Exam Constitutional: WD/WN, vitals as above Eyes: PERRL, conjunctivae normal, anicteric sclerae Neck: trachea midline, no thyromegaly Respiratory: normal respiratory effort, lungs clear to auscultation Cardiovascular: RRR, no murmur, no edema Gastrointestinal (Abdomen): soft, tenderness at RLQ, no rebound pain, no distend, BS + Musculoskeletal: no cyanosis or clubbing, extremities motor strength 5/5 Neurologic: patellar DTR's 2+ bilat, sensation intact Psychiatric: A+Ox3, euthymic affect Results & Data ([facility]) Vital Signs (Past 12 Hours) Vital Signs Temp Pulse Pulse Resp BP BP Pulse Ox 06/13/21 14:38 37.0 C 92 H 18 125/78 100 06/13/21 14:18 85 18 109/76 100 06/13/21 12:21 88 18 120/59 L 97 06/13/21 09:25 36.8 C 95 H 18 101/71 100 (1) Acute appendicitis Acute appendicitis type: with localized peritonitis Appendicitis abscess presence: without abscess Appendicitis gangrene presence: unspecified whether gangrene present Appendicitis perforation presence: without perforation Qualified Code(s): K35.30 - Acute appendicitis with localized peritonitis, without perforation or gangrene
--- NOTE | 2021-06-13 15:31 | History & Physical Bridge Note ---
Date of Service June 13, 2021 History & Physical Bridge Note I have examined the patient, reviewed the History & Physical and in the interval since the performance of the History & Physical I have noted the following changes of clinical significance: no changes noted
[2021-06-13] MEDS ORDERED: BUPIVACAINE 0.5 % 5 MG/1 ML MPF 30ML VIAL ONE (15:36)
[2021-06-13] MEDS ORDERED: LIDOCAINE 1% LOCAL 20 ML VIAL ONE (15:36)
[2021-06-13] MEDS ORDERED: BACITRACIN OINT 15 GM TUBE ONE (15:36)
[2021-06-13] MEDS ORDERED: HYDROmorphone INJ 2 MG/ML SYR/VIAL IV PRN (16:02)
[2021-06-13] MEDS ORDERED: fentaNYL citrate 100 MCG/2 ML VIAL IV PRN (16:02)
[2021-06-13] MEDS ORDERED: ONDANSETRON INJ 2 MG/ML 2 ML VIAL IV PRN ×2 (16:02→16:47)
[2021-06-13] MEDS ORDERED: ATROPINE SULFATE 0.1 MG/ML 10ML SYR IV PRN (16:02)
[2021-06-13] MEDS ORDERED: ePHEDrine sulfate 50 MG/ML AMP IV PRN (16:02)
[2021-06-13] MEDS ORDERED: PROMETHAZINE HCL 6.25 MG in SODIUM CHLORIDE 0.9% 50 ML IV PRN (16:02)
[2021-06-13] MEDS ORDERED: NEOSTIGMINE METHYLSULFATE 1 MG/ML 10ML VIAL ONE (16:24)
[2021-06-13] MEDS ORDERED: GLYCOPYRROLATE 0.2 MG/ML VIAL ONE (16:24)
--- NOTE | 2021-06-13 16:40 | Post Operative Brief Note ---
Immediate Post Op Note v1 Date of Surgery June 13, 2021 Pre & Post Diagnosis Operation Date: 06/13/21 12:00 Pre-Op Diagnosis: Acute appendicitis Post-Op Diagnosis: Acute appendicitis I identified the patient and participated in the time-out.: Yes Procedure Operation Date: 06/13/21 12:00 Actual Procedures p Laparoscopic Appendectomy(Not Applicable) - Ximena Aguirre MD Surgeon Ximena Aguirre MD [employer] surgical resident Estimated Blood Loss 5 Findings Consistent with Post-Op Diagnosis Fluids 1000ml Specimens appendix Anesthesia Type General Complications none Disposition Accompanied Patient To Recovery: Yes
[2021-06-13] MEDS ORDERED: COUGH DROP (SUGAR FREE) LOZ 24 LOZ/1 BOX BUCCAL STA (18:40)
[2021-06-13] MEDS ORDERED: oxyCODONE/ACETAMINOPHEN 5mg/325mg TAB PO PRN (18:57)
[2021-06-13] MEDS ORDERED: IBUPROFEN 600 MG TAB PO PRN (18:57)
[2021-06-13] MEDS ORDERED: HYDROmorphone INJ 0.5 MG/0.5 ML SYR IV PRN (18:57)
--- NOTE | 2021-06-13 19:05 | Anesthesiology Progress Note ---
Date of Service June 13, 2021 Anesthesia Post Procedure Vital Signs Vital Signs: Temp Pulse Pulse Pulse Resp BP BP 06/13/21 19:00 90 20 113/79 06/13/21 18:45 108 H 17 109/75 06/13/21 18:30 100 H 19 107/62 06/13/21 18:15 100 H 22 112/76 06/13/21 18:00 108 H 15 109/73 06/13/21 17:45 93 H 17 123/86 06/13/21 17:35 104 H 16 120/82 06/13/21 17:25 93 H 20 123/78 06/13/21 17:15 36.8 C 93 H 17 121/72 06/13/21 17:05 103 H 22 114/73 06/13/21 16:55 98 H 16 121/68 06/13/21 16:45 36.2 C L 72 12 121/79 06/13/21 14:38 37.0 C 92 H 18 125/78 06/13/21 14:18 85 18 109/76 06/13/21 12:21 88 18 120/59 L 06/13/21 09:25 36.8 C 95 H 18 101/71 Pulse Ox 06/13/21 19:00 97 06/13/21 18:45 97 06/13/21 18:30 98 06/13/21 18:15 98 06/13/21 18:00 97 06/13/21 17:45 97 06/13/21 17:35 98 06/13/21 17:25 97 06/13/21 17:15 98 06/13/21 17:05 98 06/13/21 16:55 100 06/13/21 16:45 99 06/13/21 14:38 100 06/13/21 14:18 100 06/13/21 12:21 97 06/13/21 09:25 100 Pain Intensity Right Abdomen: Pain Intensity: 2 Transfer of Care Handoff Completed per policy Notes Mental Status: alert / awake / arousable Patient Amnestic to Procedure: Yes Nausea / Vomiting: adequately controlled Pain: adequately controlled Airway Patency, RR, SpO2: stable & adequate BP & HR: stable & adequate Hydration State: stable & adequate Anesthetic Complications: no major complications apparent
[2021-06-13] MEDS: LACTATED RINGER'S 1,000 ML IV SCH (20:38)
--- NOTE | 2021-06-14 01:56 | Operative Report (OR) ---
DATE OF PROCEDURE: 06/13/2021 PREOPERATIVE DIAGNOSIS: Acute appendicitis. POSTOPERATIVE DIAGNOSIS: Acute appendicitis. OPERATION: Laparoscopic appendectomy. SURGEON: Ximena Aguirre MD ANESTHESIA: General. ESTIMATED BLOOD LOSS: About 5 mL. FINDINGS: Acute appendicitis. COMPLICATIONS: None. INDICATIONS FOR THE PROCEDURE: This is a 25-year-old female who presented to ED with 1-day history o f right lower quadrant pain. The patient had a CT scan diagnosis of acute appendicitis. I recommend ed to do laparoscopic appendectomy, possible open. I did talk to the patient about the benefits, ris ks, alternate procedures. I indicated the risks may include, but not limited to, such as bleeding, i nfection, injury to other organs, abscess, incisional hernia. The patient understands. She signed i nformed consent and I answered all questions. DETAILS OF PROCEDURE: After we identified the patient and verified the procedure, we brought in the patient to the OR and put the patient in the supine position. The patient received SCDs on bilateral legs to prevent DVT. Also, the patient received 2 grams cefoxitin IV for prophylactic antibiotic. The patient received general anesthesia without difficulty. Abdomen was prepped and draped in routin e sterile fashion. After timeout, I injected the local anesthesia by using 1% lidocaine mixed with 0 .5% Marcaine just above the umbilicus. I then made a small incision just above umbilicus, opened fas rancho, opened peritoneum. Under direct vision, put a Wan trocar in, connected to CO2 to create pneu moperitoneum, flow rate at 6 liters per minute, pressure not more than 14 mmHg. Once we get a nice p neumoperitoneum, we put a camera in, looked around the abdomen. Normal finding on the small bowel, l arge bowel; however, the appendix was significantly enlarged with inflammation, confirmed diagnosis o f acute appendicitis. Then, we put another two 5 mm trocars on the left lower quadrant area. Then w e used the Harmonic to take down the appendiceal, rechecked, no active bleeding. Then I used a 45 mm Endo-BALTA stapler for transection on the base of appendix, rechecked, no active bleeding, no leak on the staple line, staple line intact. Then, I removed the appendix through the catch bag. Then we reinserted the Wan trocar in, connected to CO2 to create pneumoperitoneum, again looked ar ound the abdomen, no active bleeding, no leaking from staple line, staple line intact. Then, we ese jose alberto all trocars under direct vision. No active bleeding from the trocar site. Pneumoperitoneum was released. Then I closed umbilicus incision fascial layer by using 0 Vicryl [id number] x2, close d subcutaneous layer by using 2-0 Vicryl interruptedly, closed skin by using 4-0 Vicryl continuous ru nning. Then we closed another two 5 mm trocar sites skin only by using 4-0 Vicryl. Then, we put the dressing on. The patient tolerated the procedure well. All the instrument, needle, and sponge coun ts were correct x2 at the end of the case. The patient was transferred to recovery room in stable co ndition. After the procedure, I did talk to the patient and the patient's family members about the O R finding and the procedure we did, they understand. The specimen was sent to pathology. Job ID: [id number]
[2021-06-14 06:22] LABS: Hematocrit (blood only) 34.1 % (37-47); Hemoglobin 11.5 g/dL (12.0-16.0); Immature Granulocytes # (auto) 0.01 K/uL (0.00-0.02); Immature Granulocytes % (auto) 0.1 %; Lymphocytes # (auto) 1.04 K/uL (1.2-3.4); Lymphocytes % (auto) 9.3 %; Mean Corpuscular Hemoglobin 29.5 pg (25-34); Mean Corpuscular Hgb Conc 33.7 g/dL (32-36); Mean Corpuscular Volume 87.4 fL (80-100); Mean Platelet Volume 10.2 fL (7.4-10.4); Monocytes # (auto) 0.58 K/uL (0.11-0.59); Monocytes % (auto) 5.2 %; Neutrophils # (auto) 9.55 K/uL (1.4-6.5); Neutrophils % (auto) 85.4 %; Platelet Count 320 K/uL (130-400); RDW Coefficient of Variation 12.6 % (11.5-14.5); RDW Standard Deviation 40.1 fL (36.4-46.3); White Blood Count 11.18 K/uL (4.8-10.8)
[2021-06-14] MEDS ORDERED: PRENATAL VITAMIN 1 TAB PO SCH (09:00)
[2021-06-14] MEDS ORDERED: CETIRIZINE HCL 10 MG TABLET PO SCH (09:00)
[2021-06-14] MEDS: LACTATED RINGER'S 1,000 ML IV SCH (09:10)
[2021-06-14] MEDS ORDERED: IBUPROFEN 600 MG TAB PO PRN (10:26)
[2021-06-14] MEDS ORDERED: ACETAMINOPHEN 325 MG TAB PO PRN (10:27)
--- NOTE | 2021-06-14 10:36 | Discharge Summary ---
Date of Service June 14, 2021 Admission HPI Per Admitting Provider HISTORY OF PRESENT ILLNESS: Patient is a 25-year-old female no significant past medical history presenting here today complaining of midepigastric abdominal pain to right lower quadrant starting last night with associated nausea. One episode of vomiting. Describes a 7 out of 10 pain currently describes it as bit of a sharp pain. Denies heartburn. 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 She is vaccinated for Covid. Little bit of chills but no fevers overnight. States she was well yesterday and is little bit of her son's candy and was up most the night however with pain and very nauseous feeling. Has not had much to eat or drink overnight given this and has not attempted fluid intake or food intake this morning. No history of similar. Denies any abdominal surgeries in the past. I ( Ximena Aguirre MD) got a call for consult acute appendicitis, I reviewed pt's H/P, labs, CT scan with pt, Principal Diagnosis Acute appendicitis Discharge Exam Constitutional WD/WN, vitals as above no acute distress and not ill appearing Respiratory normal respiratory effort; no respiratory distress, no labored breathing and no retractions Gastrointestinal (Abdomen) Inspection/Auscultation: abdomen normal to inspection and + abdominal surgical incision (covered with dry dressings, clean and intact); abdomen not distended Percussion/Palpation: + abdomen tender (at incision sites) and abdomen soft; no guarding and abdomen not rigid Skin no rashes, warm and dry Psychiatric A+Ox3, euthymic affect Discharge Data Allergies Allergy/AdvReac Type Severity Reaction Status Date / Time No Known Drug Allergies AdvReac NKDA Verified 04/14/18 22:47 Consultations 06/13/21 12:20 ED Decision to Admit Stat Procedures Performed Operation Date: 06/13/21 12:00 Actual Procedures p Laparoscopic Appendectomy(Not Applicable) - Ximena Aguirre MD Ordered Studies 06/13/21 09:34 CT abd pelvis oral and IV con Stat Hospital Course (1) Acute appendicitis: Patient was taken to operating room for laparoscopic appendectomy possible open by Dr. Aguirre. Patient found to have acute appendicitis without perforation or abscess. Patient tolerated procedure well without difficulty. Transferred to medical/surgical floor for postop care. IV cefoxitin was continued for postop abx, diet advanced as tolerated, PO Percocet with IV Dilaudid prn pain , activity as tolerated. POD # 1 afebrile, vitals stable, postop pain at incisions controlled, sore throat with hoarse voice, urinating without difficulty. Patient was discharged home on POD # 1 in stable condition. (2) Hemangioma of liver: three liver lesions likely hemangioma. Will order US of abdomen for further evaluation at her postop visit Total Time Total Time Spent Total Time Spent (In Minutes): 30 minutes Total Time Includes: Examination of the Patient, Discharge Planning and Medication Reconciliation Discharge Plan Discharge Items Patient Disposition: Home - Self-Care Reason For Visit: ABD PAIN Discharge Diagnosis: Acute appendicitis Activity: Per Instructions section Non-emergency contact: Surgeon Call non-emergency contact if: you have any medication questions, your pain is unusual for you, your pain is concerning for you, you have a fever, your t emperature is above 101, your wound has increased redness and your wound pain has increased Follow-up/Referrals: Ximena Aguirre MD [Physician] - Ramona Ford PA-C [Outside Practitioners] - Diet: Regular Addtl Attending Provider Instructions: Post-Surgical ~Discharge Instructions Activity Recommendations: - lifting limitation: (25 pounds for 4 weeks), - exercise/sex/sports limit: (nonstrenuous for 2 weeks), - driving or machine use limit: (none for 1 week or until no longer taking narcotic pain medication and pain free), - Shower/bathe limit: (december shower beginning Thursday) Diet: - Resume previous diet SPECIAL CARE INSTRUCTIONS: - May shower on Thursday. Wash hair and sponge bath in meantime. On Thursday, remove outer dressings and shower. Let water run over area and pat dry. - Leave steri strips on for one week and then remove. - Call the surgeon's office with any questions or concerns - - (ex. temperature higher than 101 degrees F, excessive bleeding or pain). MEDICATIONS: - Resume previous medications unless instructed otherwise by your surgeon. - May alternate extra strength Tylenol and Ibuprofen as needed for mild to moderate pain -650 mg Tylenol every 6 hours as needed - Ibuprofen 600 mg every 6 hours as needed, take with food. - Percocet 1 every 4 hours, as needed for moderate to severe pain - Recommend stool softener daily (Colace) while taking narcotic pain medication to prevent constipation or straining. FOLLOW UP VISIT: - If not already scheduled, please call the office to schedule a two week follow-up appointment. Office number You also had 3 liver lesions likely hemangioma (benign) that should be followed with an abdominal ultrasound. This can be ordered at your follow-up visit. Pending Studies at Discharge: No Stand-Alone Forms: My [facility], Opioid Pain Management, Work/School Release, Smoking Cessation Medications and DC Order Prescriptions: New oxycodone-acetaminophen 5-300 mg tablet 1 tab PO Q6H PRN (Reason: pain (scale score 7-10)) Qty: 12 RF: 0 Continued cetirizine [Zyrtec] 10 mg Tablet 10 mg PO DAILY RF: 0 PNV cmb#[id number]-ferrous fumarate-FA [] 28 mg iron- 800 mcg Tablet 1 tab PO DAILY RF: 0 ibuprofen 600 mg Tablet 600 mg PO Q4H Qty: 30 RF: 0 Discharge Orders: Discharge Order (Routine); Ordered 06/14/21 Ordered By: Justina Valentin/Other Patient Handouts: DVT Post Op Prevention Admission Data Admit Date/Time: 06/13/21 16:47 Attending Provider: Ximena Aguirre Admit Provider: Ximena Aguirre Primary Care Provider: PCP,NO Other Providers: Ximena Aguirre Other Interventions: Discharge Summary Assessment (RN) Last Done: 06/14/21 10:39
== END 2021-06-14 12:20 | disposition home or self-care (01) ==
LOC: ED 09:23 → OR 14:28 → PACUINP 14:28 → OR 14:35 → 3E 19:41